=== PATIENT | male | born 2000 | race Caucasian/White ===

== ENCOUNTER 2022-11-05 10:26 | Emergency (ER) | payer BC, SELFPAY ==
[2022-11-05 10:29] VITALS: BP 138/79; PULSE 76; RESP 18; TEMP 37; O2SAT 98; BMI 30.1
[2022-11-05 12:16] VITALS: PULSE 64; O2SAT 96
[2022-11-05 12:18] VITALS: BP 114/73; PULSE 64; O2SAT 97
[2022-11-05 12:30] VITALS: PULSE 79; O2SAT 97
[2022-11-05 12:31] VITALS: BP 128/80; PULSE 73; O2SAT 97
--- NOTE | 2022-11-05 12:36 | ED.CHESTPAIN ---
HPI - Chest Pain General Chief Complaint: Chest Pain Stated Complaint: chest pain Time Seen by Provider: 11/05/22 12:16 History of Present Illness HPI narrative: This 22-year-old male comes in reporting brief episodes of chest discomfort just left of his sternal border. He states that these occur randomly and last for a few seconds. He has no associated symptoms otherwise. He denies having any nausea, vomiting, lightheadedness, shortness of breath, or diaphoresis. He does not have any exercise intolerance. Additionally he does not have any cardiac risk factors. Currently he is not having any chest discomfort. Related Data Allergies Allergy/AdvReac Type Severity Reaction Status Date / Time No Known Drug Allergies Allergy Verified 11/05/22 10:29 Review of Systems Status of ROS Reports: 10 or more systems reviewed and unremarkable except as noted in History and below Narrative Constitutional: No fevers, no weight gain or loss. Eyes: No discharge. No vision changes. HENT: No congestion, no sore throat, no ear pain. Cardiovascular: No palpitations. Brief episodes of chest discomfort as described above. Respiratory: No shortness of breath, no wheezes, no cough. Gastrointestinal: No abdominal pain, no vomiting, no diarrhea. Genitourinary: No dysuria, no hematuria. Musculoskeletal: Normal range of motion. Skin: No rashes, no pruritis. Neurological: No dizziness, weakness, sensory change, speech change. Endo/Heme/Allergies: No bruising or bleeding. No polydipsia. Pysch: no suicidality, no anxiety, no insomnia. All other systems reviewed and are negative. PFSH PFS Social History Smoking Status: Never smoker Do you use any of these nicotine containing products: None Second hand tobacco smoke exposure: Yes How often do you have a drink containing alcohol: never How often do you have six or more drinks on one occasion: Never AUDIT-C Alcohol total score: 0 Non-prescribed substance use: denies use service: No Exam Narrative Exam Narrative: Constitutional: Well-developed, well-nourished, no acute distress. HEENT: Normocephalic, atraumatic. Neck: Normal range of motion. Nontender. Supple. Heart: Regular. No murmurs. Normal rate. Intact distal pulses. Lungs: Clear to auscultation. No chest discomfort. No wheezes, rhonchi, or rales. Abdomen: Normal bowel sounds. Nontender. No rebound tenderness. Genitalia: Deferred. Back: No midline tenderness. Normal range of motion. Extremities: Normal range of motion. No injury. Skin: Intact. No rash. Warm. No erythema or pallor. Neurologic: No altered sensation. No weakness. Alert and oriented. Psychiatric: No suicidality. No anxiety or depression. No insomnia. Nursing notes and vitals signs are reviewed. Const Vital Signs, click to edit/add: Vital Signs - 24 hr 11/05/22 10:29 Temperature 98.6 F Pulse Rate [Pulse Oximeter] 76 Respiratory Rate 18 Blood Pressure [Right Upper Arm] 138/79 Pulse Oximetry 98 Oxygen Delivery Method Room Air Course Vital Signs Vital signs: Initial Vital Signs Temperature 98.6 F 11/05/22 10:29 Temperature Source Temporal Artery Scan 11/05/22 10:29 Pulse Rate 76 11/05/22 10:29 Pulse Rhythm Regular 11/05/22 10:29 Respiratory Rate 18 11/05/22 10:29 Blood Pressure 138/79 11/05/22 10:29 Blood Pressure Mean 98 11/05/22 10:29 Blood Pressure Position Sitting 11/05/22 10:29 Pulse Oximetry 98 11/05/22 10:29 Oxygen Delivery Method Room Air 11/05/22 10:29 Vital Signs Temperature 98.6 F 11/05/22 10:29 Pulse Rate 76 11/05/22 10:29 Respiratory Rate 18 11/05/22 10:29 Blood Pressure 138/79 11/05/22 10:29 Pulse Oximetry 98 11/05/22 10:29 Oxygen Delivery Method Room Air 11/05/22 10:29 Temperature 98.6 F 11/05/22 10:29 Pulse Rate 76 11/05/22 10:29 Respiratory Rate 18 11/05/22 10:29 Blood Pressure 138/79 11/05/22 10:29 Pulse Oximetry 98 11/05/22 10:29 Oxygen Delivery Method Room Air 11/05/22 10:29 MDM - Chest Pain MDM Narrative Medical decision making narrative: This patient comes in with chest discomfort that is very brief as described above. This is not suspicious for a cardiac or pulmonary cause. His symptoms are lasting for less than a minute, usually just a few seconds. He does not have any exercise intolerance. His EKG shows normal sinus rhythm without any ST or T-wave abnormalities. I did discuss lab and imaging options going forward and in a process of shared decision making the patient declined these. At the time of discharge the patient appears safe for outpatient management. The treatment plan is reviewed along with written and verbal return precautions. Reasons to return and the importance of close followup were also reviewed. ECG Data Attestation: I personally reviewed and interpreted this ECG as follows: Interpretation: Normal sinus rhythm. Rate is 76 beats per minute. There are no ST or T-wave abnormalities. Discharge Plan Discharge Clinical Impression: Atypical chest pain Patient Disposition: Home, Self-Care Condition: Stable Additional Instructions: Activity as tolerated. Use [id number] medicines as needed and directed. Follow up with MD or return if worsening symptoms occur. Stand Alone Forms: [facility] Info Instructions
[2022-11-05 12:45] VITALS: PULSE 70; O2SAT 97
== END 2022-11-05 12:52 | disposition home or self-care (01) ==
PROVIDERS: Emergency Provider Emergency Medicine Emergency Medical Services
DX: R07.9 Chest pain, unspecified (principal)
CPT/HCPCS: 93005; 99284